=== PATIENT | male | born 1965 | race Caucasian/White ===

== ENCOUNTER 2017-09-27 09:58 | Emergency (ER) | payer BC ==
[2017-09-27] MEDS ORDERED: KEFZOL 1 GM/50 ML PREMIX** 1 GM/50 ML IVPB IV ONE (10:18)
[2017-09-27] MEDS ORDERED: Zofran 4 MG/2 ML VIAL IV ONE (10:18)
[2017-09-27] MEDS ORDERED: Adacel Vial IM ONE ×2 (10:18→10:22)
[2017-09-27] MEDS ORDERED: MORPHINE SULFATE 4 MG INJ IV ONE (10:18)
--- NOTE | 2017-09-27 10:18 | ERPHSYRPT ---
- History of Present Illness Time Seen by Provider: 09/27/17 10:14 Source: patient Exam Limitations: no limitations Physician History: The patient is a right-handed 51-year-old male complaining that he cut the tip of his left middle finger on a table saw just prior to arrival. The tip of the finger is badly mangled. At the current time the pain is minimal. He can move the rest of his finger without difficulty. His tetanus vaccination is more than 5 years ago. He takes no medicines. He last ate a small amount at 8:30 am. His past medical history is unremarkable. Occurred: just prior to arrival Method of Injury: other (saw injury) Quality: sharpness Severity of Pain-Max: mild Severity of Pain-Current: mild Extremities Pain Location: 3rd finger: left Modifying Factors: Improves With: nothing Associated Symptoms: none Allergies/Adverse Reactions: No Known Drug Allergies Allergy (Unverified 09/27/17 10:17) Home Medications: No Reportable Medications [No Reported Medications] 09/27/17 [History] - Review of Systems Constitutional: No Fever, No Chills Eyes: No Symptoms Ears, Nose, & Throat: No Symptoms Respiratory: No Cough, No Dyspnea Cardiac: No Chest Pain, No Edema, No Syncope Abdominal/Gastrointestinal: No Abdominal Pain, No Nausea, No Vomiting, No Diarrhea Genitourinary Symptoms: No Dysuria Musculoskeletal: No Back Pain, No Neck Pain Skin: Other (laceration), No Rash Neurological: No Dizziness, No Focal Weakness, No Sensory Changes Psychological: No Symptoms Endocrine: No Symptoms Hematologic/Lymphatic: No Symptoms Immunological/Allergic: No Symptoms All Other Systems: Reviewed and Negative - Past Medical History Neurological History: No Pertinent History Cardiac History: No Pertinent History Respiratory History: No Pertinent History Endocrine Medical History: No Pertinent History Musculoskeletal History: No Pertinent History - Nursing Vital Signs Nursing Vital Signs: Initial Vital Signs Temperature 98.3 F 09/27/17 10:13 Pulse Rate 83 09/27/17 10:13 Respiratory Rate 18 09/27/17 10:13 Blood Pressure 140/81 09/27/17 10:13 O2 Sat by Pulse Oximetry 96 09/27/17 10:13 Pain Scale Pain Intensity 5 - Physical Exam General Appearance: alert Eyes, Ears, Nose, Throat Exam: moist mucous membranes Neck Exam: non-tender, supple Cardiovascular/Respiratory Exam: chest non-tender, normal breath sounds, regular rate/rhythm, no respiratory distress Abdominal Exam: non-tender, No guarding Back Exam: normal inspection, No vertebral tenderness Shoulder Exam: normal inspection Elbow/Forearm Exam: normal inspection Wrist Exam: normal inspection Hand Exam: laceration (laceration with bone involvement to distal phalanx of left 3rd digit.), nail injury Neuro/Tendon Exam: normal sensation, normal motor functions Mental Status Exam: alert, oriented x 3, cooperative Skin Exam: laceration SpO2 Interpretation: normal - Radiology Exams Left Hand X-ray Interpretation: Interpreted by me, Displaced Fracture (open comminuted fracture of distal phalanx of left 3rd phyllange.) Ordered Tests: Active Orders 24 hr Category Date Time Status IV Insertion STAT Care 09/27/17 10:18 Active FINGER(S) Stat Exams 09/27/17 10:18 Taken Medication Summary Generic Name Dose Route Start Last Admin Trade Name Freq PRN Reason Stop Dose Admin Cefazolin Sodium/Dextrose 50 mls @ 100 mls/hr 09/27/17 10:18 Kefzol 1 Gm/50 Ml Premix IV 09/27/17 10:47 STAT ONE Discontinued Medications Generic Name Dose Route Start Last Admin Trade Name Freq PRN Reason Stop Dose Admin Diphtheria/Tetanus/Acell Pertussis 0.5 ml 09/27/17 10:18 09/27/17 10:24 Adacel Vial IM 09/27/17 10:19 0.5 ml .ONCE ONE Administration Diphtheria/Tetanus/Acell Pertussis Confirm 09/27/17 10:22 Adacel Vial Administered 09/27/17 10:23 Dose 0.5 ml IM .STK-MED ONE Ketorolac Tromethamine 30 mg 09/27/17 11:00 Toradol 30 Mg Injection IV 09/27/17 11:01 STAT ONE Morphine Sulfate 4 mg 09/27/17 10:18 09/27/17 10:25 Morphine Sulfate 4 Mg Inj IV 09/27/17 10:19 4 mg STAT ONE Administration Morphine Sulfate Confirm 09/27/17 10:22 Morphine Sulfate 4 Mg Inj Administered 09/27/17 10:23 Dose 4 mg .ROUTE .STK-MED ONE Ondansetron HCl 4 mg 09/27/17 10:18 09/27/17 10:25 Zofran 4 Mg/2 Ml Vial IV 09/27/17 10:19 4 mg STAT ONE Administration Ondansetron HCl Confirm 09/27/17 10:22 Zofran 4 Mg/2 Ml Vial Administered 09/27/17 10:23 Dose 4 mg .ROUTE .STK-MED ONE - Progress Progress: improved Counseled pt/family regarding: rad results - Departure Time of Disposition: 11:06 Departure Disposition: Home Clinical Impression: Fracture, finger, distal phalanx, open Condition: Stable Critical Care Time: No Referrals: LESLIE TREJO [Primary Care Provider] - Additional Instructions: You have an open comminuted fracture of the tip of your left middle finger. You were given morphine 4 mg, Zofran 4 mg, and Toradol 30 mg by IV. You were also given Ancef 1 g by IV. Please go by private car, having her drive, to [facility]. Dr. Dawn, the trauma surgeon, is expecting your arrival. Do not eat or drink anything.
[2017-09-27] MEDS ORDERED: Zofran 4 MG/2 ML VIAL ONE (10:22)
[2017-09-27] MEDS ORDERED: MORPHINE SULFATE 4 MG INJ ONE (10:22)
[2017-09-27] MEDS ORDERED: TORAdol 30 mg Injection IV ONE (11:00)
[2017-09-27] MEDS ORDERED: TORAdol 30 mg Injection ONE (11:02)
[2017-09-27 11:51] VITALS: BP 122/60; PULSE 80; O2SAT 97
--- NOTE | 2017-09-27 21:09 | XRAY ---
Indication: Saw injury. Comparison: None 3 views of the left 3rd finger demonstrates comminuted fracture involving the distal phalanx with soft tissue laceration. Distal tuft fracture is displaced. No other bony, articular, or soft tissue abnormalities.
== END 2017-09-27 11:52 | disposition short-term general hospital (02) ==
LOC: ED 09:58
DX: S62.633B Displaced fracture of distal phalanx of left middle finger, initial encounter for open fracture (principal); W31.2XXA Contact with powered woodworking and forming machines, initial encounter; Y93.9 Activity, unspecified; Y92.9 Unspecified place or not applicable; M79.645 Pain in left finger(s); A35 Other tetanus; Z23 Encounter for immunization
CPT/HCPCS: 36000; 73140; 90471; 90715; 96365; 96374; 96375; 99285; J0690; J1885; J2270; J2405

== ENCOUNTER 2018-05-22 05:58 | Day surgery (SDC) | payer BC ==
[2018-05-22] MEDS ORDERED: DIPRIVAN 200 MG/20 ML IV ONE (05:59)
[2018-05-22] MEDS ORDERED: Ketamine HCl 50 MG/ML IJ ONE (05:59)
[2018-05-22] MEDS ORDERED: Lactated Ringers 1,000 ML IV SCH (06:30)
[2018-05-22] MEDS ORDERED: Lactated Ringers 1,000 ML IV ONE (08:08)
[2018-05-22 08:45] VITALS: BP 118/79; PULSE 58; O2SAT 97
--- NOTE | 2018-05-22 08:45 | OP ---
SURGERY DATE/TIME: 05/22/2018 0727 PREOPERATIVE DIAGNOSES: 1) Reflux. 2) Screening exam of colon. PROCEDURES: 1) Esophagogastroduodenoscopy. 2) Colonoscopy. SURGEON: Dr. Pitts. ANESTHESIA: Medications were given by the anesthesia department. BRIEF HISTORY: The patient is a 52 year old white male presenting now for evaluation due to gastroesophageal reflux and for screening colonoscopy. The patient was appraised of the risks of the procedure including the risk of perforation, phlebitis, untoward reaction to medication, bleeding and missed lesions. The patient verbalized his understanding and desired to have the procedure performed. DESCRIPTION OF PROCEDURE: The patient was given the medications by the anesthesia department. He had continuous pulse oximetry, ECG monitoring, intermittent blood pressure monitoring and tidal CO2 monitoring during the examination. He was placed in the left lateral decubitus position. A bite block was placed and the flexible Olympus gastroscope was used to intubate the oropharynx. The esophagus appeared to be normal to the gastroesophageal junction where there appeared to be a small to moderate sized hiatal hernia. The scope entered into the stomach where normal gastric rugal folds were seen. Gastric mendez was suctioned dry and the stomach was re-insufflated. There was good distention of the gastric rugal folds with insufflation of air. The scope was passed along the greater curvature of the stomach to the antrum. Pylorus encountered and intubated. Duodenum inspected and found to be normal. The scope was withdrawn from the stomach. A retroflex view was obtained of the lesser curvature, fundus and cardia regions of the stomach and again here noted presence of hiatal hernia but no other mucosal lesions were encountered. The scope was removed from the patient. Next, a digital rectal examination was performed and revealed normal anal sphincter tone and no masses and normal prostate. The flexible Olympus pediatric colonoscope was used to intubate the rectum. A view of the colon was developed sequentially to the cecum. Upon insertion and withdrawal, including a retroflex view in the rectum, no mucosal lesions were encountered. The scope was removed from the patient who tolerated the procedure well and was sent back to OP recovery in good condition. The prep was noted to be fair.
== END 2018-05-22 08:54 | disposition home or self-care (01) ==
LOC: SDC 05:58
PROVIDERS: ATTEND Family Medicine
DX: K21.9 Gastro-esophageal reflux disease without esophagitis (principal); Z12.11 Encounter for screening for malignant neoplasm of colon; K44.9 Diaphragmatic hernia without obstruction or gangrene
CPT/HCPCS: 94250; J2704